=== PATIENT | male | born 1995 | race Two or more races ===

== ENCOUNTER 2021-11-06 08:39 | Emergency (ER) | payer SELFPAY ==
[~2021-11-06] VITALS: Ht 175.3 cm; Wt 102.1 kg
[2021-11-06] MEDS ORDERED: ALBU108A5 IN (09:06)
[2021-11-06 09:07] VITALS: BP 135/93
[2021-11-07] MEDS ORDERED: PRED20TA2 PO (09:09)
[2021-11-07] MEDS ORDERED: ALBUAER3 IN (09:09)
== END 2021-11-06 09:15 | disposition home or self-care (01) ==
LOC: ER 08:39
DX: J45.909 Unspecified asthma, uncomplicated (principal); Z76.0 Encounter for issue of repeat prescription

== ENCOUNTER 2021-11-07 07:22 | Emergency (ER) | payer OTHER ==
[~2021-11-07] VITALS: Ht 175.3 cm; Wt 102.1 kg
[~2021-11-07 07:22] MED LIST: ALBU108A5 IN
[2021-11-07] MEDS ORDERED: ALBUTEROL SULF 2.5 MG/0.5ML(0.5%) NEB SOLN NEB ONE (07:30)
[2021-11-07] MEDS ORDERED: IPRATROPIUM BROM 0.5 MG/2.5ML INH SOL NEB ONE (07:30)
[2021-11-07] MEDS ORDERED: PRED20TA2 PO (09:09)
[2021-11-07] MEDS ORDERED: ALBUAER3 IN (09:09)
[2021-11-07] MEDS ORDERED: methylPREDNISolone SOD SUCC 125 MG/2 ML VL IM ONE (09:15)
[2021-11-07 09:19] VITALS: BP 149/77
== END 2021-11-07 10:13 | disposition home or self-care (01) ==
LOC: ER 07:22
DX: J45.901 Unspecified asthma with (acute) exacerbation (principal); Z76.0 Encounter for issue of repeat prescription
CPT/HCPCS: 94640; 96372; 99283; J2930; J7644